=== PATIENT | female | born 1995 | race Caucasian/White ===

== ENCOUNTER 2017-05-27 10:55 | Emergency (ER) | payer BC ==
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
[~2017-05-27 10:55] MED LIST: NO MEDICATIONS; ROBAXIN500 MG PO; VOLTAREN75 MG PO; ZOFRAN ODT4 MG PO
== END 2017-05-27 13:34 | disposition home or self-care (01) ==
LOC: SED 10:55
DX: S16.1XXA Strain of muscle, fascia and tendon at neck level, initial encounter (principal); S70.12XA Contusion of left thigh, initial encounter; S80.11XA Contusion of right lower leg, initial encounter; S50.812A Abrasion of left forearm, initial encounter; F17.210 Nicotine dependence, cigarettes, uncomplicated; Z23 Encounter for immunization; V43.52XA Car driver injured in collision with other type car in traffic accident, initial encounter; W22.11XA Striking against or struck by driver side automobile airbag, initial encounter
CPT/HCPCS: 70450; 72072; 72125; 73030; 73552; 73560; 73590; 84703; 90471; 90715; 99284